=== PATIENT | female | born 1945 | race Caucasian/White ===

== ENCOUNTER 2017-02-14 14:37 | Outpatient (CLI) | payer MEDICARE ==
--- NOTE | 2017-02-14 19:44 | XRAY Report ---
COMPLETE CERVICAL SPINE: 02/14/2017 CLINICAL INDICATION: Neck pain. FINDINGS: AP, lateral, oblique, odontoid views of the cervical spine demonstrate reversal of the nor mal cervical lordosis. [id number] degenerative disc and facet disease is present, with bilat eral osseous neural foraminal encroachment from C3-4 to C5-6. There is no evidence of acute fracture . The prevertebral soft tissues are unremarkable. IMPRESSION: EXTENSIVE DEGENERATIVE CHANGES, WITH BILATERAL OSSEOUS NEURAL FORAMINAL NARROWING. JOB #: [id number] EXT JOB #:[id number]
== END 2017-02-14 14:38 | disposition home or self-care (01) ==
LOC: DI.S 14:37
PROVIDERS: ATTEND Internal Medicine
DX: M50.31 Other cervical disc degeneration, high cervical region (principal); M47.892 Other spondylosis, cervical region
CPT/HCPCS: 72050

== ENCOUNTER 2017-12-30 15:35 | Outpatient (CLI) | payer MEDICARE ==
--- NOTE | 2017-12-31 12:46 | XRAY Report ---
THREE VIEW RIGHT SHOULDER: 12/30/2017 CLINICAL INDICATION: Pain. FINDINGS: AP, oblique, scapular Y views of the right shoulder demonstrate no evidence of acute fracture or dislocation. Mild degenerative changes are seen in the acromioclavicular and glenohumeral joints. No foreign body is seen in the soft tissues. IMPRESSION: MILD OSTEOARTHRITIS. NO EVIDENCE OF FRACTURE. TD: 12/31/2017 11:53
== END 2017-12-30 15:36 | disposition home or self-care (01) ==
LOC: DI.S 15:35
PROVIDERS: ATTEND Internal Medicine
DX: M25.511 Pain in right shoulder (principal); M75.41 Impingement syndrome of right shoulder; M19.011 Primary osteoarthritis, right shoulder

== ENCOUNTER 2018-06-07 01:05 | Inpatient (IN) | payer MEDICARE ==
[2018-06-07 01:34] LABS: BASOPHILS # (AUTO) 0.1 10^3/uL (0.0-0.1); BASOPHILS % (AUTO) 0.4 %; EOSINOPHILS # (AUTO) 0.1 10^3/uL (0.0-0.7); EOSINOPHILS % (AUTO) 0.4 %; HGB - HEMOGLOBIN 13.6 g/dL (12.0-16.0); LYMPHOCYTES # (AUTO) 1.8 10^3/uL (1.5-3.5); LYMPHOCYTES % (AUTO) 13.8 %; MEAN CORPUSCULAR HEMOGLOBIN 32.4 pg (27.0-31.0); MEAN CORPUSCULAR HGB CONC 35.6 g/dL (32.0-36.0); MEAN CORPUSCULAR VOLUME 90.9 fL (81.0-99.0); MEAN PLATELET VOLUME 8.4 fL (7.9-10.8); MONOCYTES % (AUTO) 7.8 %; NEUTROPHILS # (AUTO) 10.2 10^3/uL (1.5-6.6); NEUTROPHILS % (AUTO) 77.6 %; PLT - PLATELET COUNT 265 10^3/uL (130-450); RED BLOOD COUNT 4.18 10^6/uL (4.20-5.40); WHITE BLOOD COUNT 13.1 x10^3/uL (4.8-10.8)
[2018-06-07 01:47] LABS: ALBUMIN 4.1 g/dL (3.2-5.5); ALBUMIN/GLOBULIN RATIO 1.5 (1.0-2.2); BILIRUBIN,TOTAL 0.4 mg/dL (0.2-1.0); CALCIUM 9.1 mg/dL (8.5-10.3); CREATININE 0.8 mg/dL (0.4-1.0); TOTAL PROTEIN 6.9 g/dL (6.7-8.2)
--- NOTE | 2018-06-07 01:49 | ED Physician Documentation ---
PD HPI CHEST PAIN - Stated complaint Stated Complaint: CP/ABD PAIN WITH DISTENTION - Chief complaint Chief Complaint: Cardiac - History obtained from History obtained from: Patient - History of Present Illness Timing - onset: Yesterday (approximately 24 hours ago) Timing - onset during: Light activity Timing - details: Gradual onset, Waxing and waning, Still present in ED Pain level max: 8 Pain level now: 6 Quality: Pain Location: Substernal, Epigastric Radiation: Back Improved by: Nothing Worsened by: Other (no apparent exacerbating factors) Associated symptoms: Nausea. No: Vomiting Similar symptoms before: Has not had sx before Recently seen: Not recently seen - Additional information Additional information: Patient complains of proximally 24 hours of waxing and waning pain in her lower chest and upper abdomen radiating to her back. She has nausea but no vomiting. Received fentanyl en route to hospital with significant relief of the pain. Review of Systems Constitutional: reports: Reviewed and negative Eyes: reports: Reviewed and negative Ears: reports: Reviewed and negative Nose: reports: Reviewed and negative Throat: reports: Reviewed and negative Cardiac: reports: Reviewed and negative Respiratory: reports: Reviewed and negative GI: reports: Abdominal Pain, Nausea. 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 - Present Medications Home Medications: Ambulatory Orders Medication Instructions Recorded Confirmed Estradiol [Estrace] 0.5 mg PO DAILY 12/03/12 06/07/18 Levothyroxine Sodium [Levoxyl] 75 mcg PO DAILY 12/03/12 06/07/18 Lisinopril 10 mg PO DAILY 06/07/18 06/07/18 Naltrexone HCl 3 mg PO QPM 06/07/18 06/07/18 buPROPion HCl [Bupropion HCl] 100 mg PO BID 06/07/18 06/07/18 - Allergies Allergies/Adverse Reactions: Allergies Allergy/AdvReac Type Severity Reaction Status Date / Time Latex, Natural Rubber Allergy Intermediate Hives Verified 06/07/18 01:17 PST - Social History Does the pt smoke?: No Smoking Status: Never smoker Does the pt drink ETOH?: No Does the pt have substance abuse?: No - Immunizations Immunizations are current?: Yes - POLST Patient has POLST: No PD ED PE NORMAL - Vitals Vital signs reviewed: Yes - General General: Alert and oriented X 3, No acute distress, Well developed/nourished - HEENT HEENT: Moist mucous membranes - Neck Neck: Supple, no meningeal sign - Cardiac Cardiac: RRR, No murmur - Respiratory Respiratory: No respiratory distress, Clear bilaterally - Abdomen Abdomen: Soft, Non distended, Other (moderate tenderness in epigastrium, RUQ without rebound or guarding) - Back Back: No CVA TTP - Derm Derm: Normal color, Warm and dry, No rash - Extremities Extremities: No edema - Neuro Neuro: Alert and oriented X 3 Results - Vitals Vitals: Oxygen O2 Source Room air - EKG (time done) No standard instances Rate: Rate (enter#) (55) Rhythm: NSR [place]: Normal Intervals: Normal [place] QRS: Normal Ischemia: Normal ST segments - Labs Labs: Laboratory Tests 06/07/18 06/07/18 06/07/18 01:25 PST 01:25 PST 01:25 PST WBC 13.1 H RBC 4.18 L Hgb 13.6 Hct 38.0 MCV 90.9 MCH 32.4 H MCHC 35.6 RDW 13.0 Plt Count 265 MPV 8.4 Neut # (Auto) 10.2 H Lymph # (Auto) 1.8 [place] # (Auto) 1.0 Eos # (Auto) 0.1 Baso # (Auto) 0.1 Absolute Nucleated RBC 0.01 Nucleated RBC % 0.1 Sodium 132 L Potassium 3.7 Chloride 94 L Carbon Dioxide 28 Anion Gap 10.0 BUN 17 Creatinine 0.8 Estimated GFR (MDRD) 70 L Glucose 126 H Calcium 9.1 Total Bilirubin 0.4 AST 35 ALT 38 Alkaline Phosphatase 75 Troponin I 0.05 Total Protein 6.9 Albumin 4.1 Globulin 2.8 Albumin/Globulin Ratio 1.5 Lipase 22 - Rads (name of study) RUQ US Radiology: Prelim report reviewed, See rad report PD MEDICAL DECISION MAKING - ED course Complexity details: reviewed results, re-evaluated patient, considered differential, d/w patient, d/w family ED course: reassuring blood test results, although mild leukocytosis noted. US c/w cholecystitis with dilated CBD to 15mm. d/w Dr. Gonzales, recommends admission to hospitalist service. d/w Dr. Bacon, accepts to hospitalist service. Departure - Departure Disposition: [facility] DC/Xfer Clinical Impression: Cholecystitis Condition: Good Discharge Date/Time: 06/07/18 06:14
[2018-06-07] MEDS: fentaNYL 100 MCG/2 ML VIAL IVP STA ×2 (02:28→14:38)
--- NOTE | 2018-06-07 03:02 | XRAY Report ---
Reason: chest/back pain Procedure Date: 06/07/2018 Accession Number: [id number] / [id number] Procedure: XR - Chest 2 View X-Ray CPT Code: 50978 FULL RESULT: EXAM: CHEST RADIOGRAPHY EXAM DATE: 06/07/2018 02:53 AM. CLINICAL HISTORY: Chest/back pain. COMPARISON: None. TECHNIQUE: 2 views. FINDINGS: Lungs/Pleura: No focal opacities evident. No pleural effusion. No pneumothorax. Normal volumes. Mediastinum: Heart and mediastinal contours are unremarkable. Other: None. IMPRESSION: Normal 2-view chest radiography. RADIA
--- NOTE | 2018-06-07 04:11 | Ultrasound Report ---
Reason: abd. pain Procedure Date: 06/07/2018 Accession Number: [id number] / [id number] Procedure: US - Abdomen Limited CPT Code: FULL RESULT: EXAM: ABDOMEN ULTRASOUND LIMITED, RUQ EXAM DATE: 06/07/2018 03:53 AM. CLINICAL HISTORY: Abd. pain. COMPARISON: None. TECHNIQUE: Real-time scanning was performed with static images obtained. FINDINGS: Liver: The liver demonstrates a 1.5 cm echogenic hemangioma in the right lobe. No suspicious hepatic lesion is seen. The liver measures 16.2 cm. Main portal vein flow: Hepatopetal. Gallbladder: Cholelithiasis. Gallbladder wall thickening and positive sonographic Barber sign, compatible with acute cholecystitis. Biliary System: CBD measures 15 mm. Other: No right hydronephrosis. IMPRESSION: Cholelithiasis, with wall thickening and positive sonographic Barber sign, compatible with acute cholecystitis. Dilated common bile duct. RADIA
[2018-06-07] MEDS ORDERED: ONDANSETRON 4 MG/2 ML VIAL IVP STA (05:00)
[2018-06-07] MEDS ORDERED: HYDROmorphone 1 MG/ML CARPUJECT IVP STA (05:00)
[2018-06-07] MEDS ORDERED: PROCHLORPERAZINE 10 MG/2 ML VIAL IVP PRN (05:01)
[2018-06-07] MEDS ORDERED: PROMETHAZINE 25 MG/1 ML VIAL IM PRN (05:01)
[2018-06-07] MEDS ORDERED: ONDANSETRON 4 MG/2 ML VIAL IVP PRN (05:01)
[2018-06-07] MEDS ORDERED: ACETAMINOPHEN 325 MG TABLET PO PRN (05:01)
[2018-06-07] MEDS ORDERED: oxyCODONE 5 MG TABLET PO PRN ×2 (05:01)
--- NOTE | 2018-06-07 05:08 | HISTORY & PHYSICAL EXAMINATION ---
Chief Complaint - Chief Complaint Chief Complaint: Abdominal pain History of Present Illness - Admitted From Admitted From:: Emergency Department - History Obtained From Records Reviewed: Yes History obtained from: Patient Exam Limitations: None - History of Present Illness HPI Comment/Other: Patient is a 73-year-old female with a past medical history significant for hypothyroidism, hypertension, depression, fibromyalgia and irritable bowel syndrome who presented to the emergency department with chief complaint of abdo anni pain. The patient states that she was in her normal state of health until Friday night when she ate a taco. She states that she went to bed that evening feeling okay but then woke up around 2 AM with abdominal pain. She states that the pain was initially located in the epigastric area and radiated into her back and then up into her chest and down into her lower abdomen. She states that she had associated nausea. She states that she tried taking an acids and homeopathic medications but nothing seemed to subside the pain. The patient states that the pain was persistent throughout the day and came in waves. She states that she also felt bloated and gassy. She states that she tried not to come into the hospital but then around midnight she states the pain became severe and was a 9 out of 10 and finally she stated that she could not bear it any longer. The patient states that she did try to keep hydrated throughout the day despite feeling nauseated. She did not have any episodes of vomiting. She did not have any diarrhea or constipation. The patient denies having had any fevers or chills. The patient denies any cough or shortness of breath. The patient states she is never had pain like this before. The patient states that she had no appetite. Patient denies any headaches, blurred vision, runny nose, sore throat, nasal congestion, difficulty swallowing, orthopnea, PND, increased lower extremity swelling, urinary urgency, urinary frequency, dysuria, joint pain, muscle aches, neck stiffness, polyuria, polydipsia, skin changes, skin rash, recent unintentional weight loss or any focal neurologic deficits. On presentation to the emergency department the patient was afebrile, bradycardic with a heart rate of 55 and hypertensive. The patient was not in any respiratory distress but did appear to be in significant distress secondary to her abdominal pain. The patient was given fentanyl when she arrived in the emergency department and required several doses of fentanyl while she was in the emergency department due to persistent abdominal pain. The patient did have some right upper quadrant tenderness on examination. The patient's lab work revealed a mild leukocytosis of 13.1 and a mild hyponatremia of 132. The remainder of the patient's lab work was within normal limits. The patient did undergo a abdominal ultrasound which revealed cholelithiasis with wall thickening and positive sonographic Barber sign compatible with acute cholecystitis. There was also a dilated common bile duct measuring 15 mm. The emergency room physician spoke with the general surgeon farm demonstrator Dr. Gonzales who asked that the hospitalist team admit the patient and place her on antibiotics and that he would consult and take her to the OR for cholecystectomy later in the day. The patient was admitted to the [facility] for acute cholecystitis. 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 She is completely independent. She is . She has 1 daughter who lives in [place]. 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 She has never smoked, she does not drink alcohol and denies any illicit drug use. - POLST Patient has POLST: No POLST Status: Full Code Meds/Allgy - Home Medications Home Medications: Ambulatory Orders Medication Instructions Recorded Confirmed Estradiol [Estrace] 2 mg PO DAILY 12/03/12 06/07/18 Levothyroxine Sodium [Levoxyl] 75 mcg PO DAILY 12/03/12 06/07/18 Medroxyprogesterone Acetate 2.5 mg PO DAILY 12/03/12 06/07/18 Lisinopril 1 tab PO DAILY 06/07/18 06/07/18 buPROPion HCl [Bupropion HCl] 1 tab PO TID 06/07/18 06/07/18 - Allergies Allergies/Adverse Reactions: Allergies Allergy/AdvReac Type Severity Reaction Status Date / Time Latex, Natural Rubber Allergy Intermediate Hives Verified 06/07/18 01:17 PST Review of Systems - Other Findings Other Findings: A comprehensive review of systems was performed the pertinent positives and negatives are stated above in the HPI and the remainder of the review of systems is negative. Prior Level of Functionality: Patient is completely independent with all her activities of daily living. Exam - Vital Signs Reviewed Vital Signs: Yes Vital Signs: Vital Signs x48h Temp Pulse Resp BP Pulse Ox 06/07/18 02:56 53 L 16 182/65 H 97 06/07/18 02:10 36.2 C L 59 L 16 188/72 H 98 06/07/18 01:12 PST 55 L 12 168/84 H 98 - Physical Exam General Appearance: positive: Alert, Moderate distress (Secondary to abdominal p ain) Eyes Bilateral: positive: Normal inspection, PERRL, EOMI, No lid inflammation, Conjunctivae nml, No scleral icterus ENT: positive: ENT inspection nml, Pharynx nml, Dry mucous membranes. negative: Purulent nasal drainage, Pharyngeal erythema, Oral lesions Neck: positive: Nml inspection, Thyroid nml, No JVD, Trachea midline. negative: Thyromegaly, Lymphadenopathy (R), Lymphadenopathy (L), Carotid bruit, Tracheal deviation Respiratory: positive: Chest non-tender, No respiratory distress, Breath sounds nml. negative: Wheezes, Rales, Rhonchi Cardiovascular: positive: Regular rate & rhythm, No murmur, No gallop Peripheral Pulses: positive: 2+ Abdomen: positive: No organomegaly, Nml bowel sounds, No distention, Tenderness (Soft, RUQ tenderness, no abdominal guarding, no rebound). negative: Guarding, Rebound, Hepatomegaly Back: positive: Nml inspection. negative: CVA tenderness (R), CVA tenderness (L) Skin: positive: Color nml, No rash, Warm, Dry. negative: Cyanosis, Diaphoresis, Pallor, Skin rash Extremities: positive: Non-tender, Full ROM, Nml appearance, No pedal edema Neurologic/Psychiatric: positive: Oriented x3, CN's nml (2-12), Motor nml, Sensation nml, Mood/affect nml Conclusion/Plan - Problem List (1) Cholecystitis Conclusion/Plan: Patient presents with abdominal pain for the last 24 hours with radiation to her back and up into her chest. Patient also has associated nausea. Patient's ultrasound shows acute cholecystitis with a positive sonographic Barber sign and common bile duct dilation. Patient's LFTs are within normal limits. Patient does have a leukocytosis but no fever. According to the revised cardiac risk index for preoperative risk the patient scores 0 and has a 0.4% risk of major cardiac event. Plan: IV antibiotics with ciprofloxacin and Flagyl IV fluids IV Dilaudid for pain control IV Zofran and Compazine for nausea control N.p.o. Surgery consult for likely cholecystectomy (2) Hyponatremia Conclusion/Plan: On presentation to the emergency department the patient's sodium is 132. Patient appears to have hypovolemic hyponatremia likely due to ongoing infection and nausea. The patient will be given IV fluids and we will continue to monitor her sodium. (3) Hypertension Conclusion/Plan: Patient has a history of hypertension and is on lisinopril at home. On presentation the emergency department the patient is quite hypertensive. Likely patient is hypertensive secondary to her pain. We will continue the patient's home antihypertensive medication and give her medication for pain control. We will continue to monitor the patient's blood pressure and titrate medication as needed. Qualifiers: Hypertension type: essential hypertension Qualified Code(s): I10 - Essential (primary) hypertension (4) Hypothyroidism Conclusion/Plan: The patient has a history of hypothyroidism and is on levothyroxine at home. We will continue the patient's home dose of levothyroxine while she is hospitalized. Qualifiers: Hypothyroidism type: unspecified Qualified Code(s): E03.9 - Hypothyroidism, unspecified (5) Depression Conclusion/Plan: The patient has a history of depression and is on bupropion at home. We will continue the patient's home dose of bupropion while she is hospitalized. Currently the patient's mood appears to be stable. Qualifiers: Depression Type: unspecified Qualified Code(s): F32.9 - Major depressive disorder, single episode, unspecified - Lab Results Lab results reviewed: Yes Fish Bones: 06/07/18 01:25 PST 06/07/18 01:25 PST Other Lab Results: Laboratory Results WBC 13.1 x10^3/uL (4.8-10.8) H 06/07/18 01:25 PST RBC 4.18 10^6/uL (4.20-5.40) L 06/07/18 01:25 PST Hgb 13.6 g/dL (12.0-16.0) 06/07/18 01:25 PST Hct 38.0 % (37.0-47.0) 06/07/18 01:25 PST MCV 90.9 fL (81.0-99.0) 06/07/18 01:25 PST MCH 32.4 pg (27.0-31.0) H 06/07/18 01:25 PST MCHC 35.6 g/dL (32.0-36.0) 06/07/18 01:25 PST RDW 13.0 % (12.0-15.0) 06/07/18 01:25 PST Plt Count 265 10^3/uL (130-450) 06/07/18 01:25 PST MPV 8.4 fL (7.9-10.8) 06/07/18 01:25 PST Neut # (Auto) 10.2 10^3/uL (1.5-6.6) H 06/07/18 01:25 PST Lymph # (Auto) 1.8 10^3/uL (1.5-3.5) 06/07/18 01:25 PST Terry # (Auto) 1.0 10^3/uL (0.0-1.0) 06/07/18 01:25 PST Eos # (Auto) 0.1 10^3/uL (0.0-0.7) 06/07/18 01:25 PST Baso # (Auto) 0.1 10^3/uL (0.0-0.1) 06/07/18 01:25 PST Absolute Nucleated RBC 0.01 x10^3/uL 06/07/18 01:25 PST Nucleated RBC % 0.1 /100WBC 06/07/18 01:25 PST Sodium 132 mmol/L (135-145) L 06/07/18 01:25 PST Potassium 3.7 mmol/L (3.5-5.0) 06/07/18 01:25 PST Chloride 94 mmol/L (101-111) L 06/07/18 01:25 PST Carbon Dioxide 28 mmol/L (21-32) 06/07/18 01:25 PST Anion Gap 10.0 (6-13) 06/07/18 01:25 PST BUN 17 mg/dL (6-20) 06/07/18 01:25 PST Creatinine 0.8 mg/dL (0.4-1.0) 06/07/18 01:25 PST Estimated GFR (MDRD) 70 (>89) L 06/07/18 01:25 PST Glucose 126 mg/dL (70-100) H 06/07/18 01:25 PST Calcium 9.1 mg/dL (8.5-10.3) 06/07/18 01:25 PST Total Bilirubin 0.4 mg/dL (0.2-1.0) 06/07/18 01:25 PST AST 35 IU/L (10-42) 06/07/18 01:25 PST ALT 38 IU/L (10-60) 06/07/18 01:25 PST Alkaline Phosphatase 75 IU/L (42-121) 06/07/18 01:25 PST Troponin I 0.05 ng/mL (<0.49) 06/07/18 01:25 PST Total Protein 6.9 g/dL (6.7-8.2) 06/07/18 01:25 PST Albumin 4.1 g/dL (3.2-5.5) 06/07/18 01:25 PST Globulin 2.8 g/dL (2.1-4.2) 06/07/18 01:25 PST Albumin/Globulin Ratio 1.5 (1.0-2.2) 06/07/18 01:25 PST Lipase 22 U/L (22-51) 06/07/18 01:25 PST - Diagnostic Imaging Results Diagnostic Imaging Results: positive: Final report reviewed Diagnostic Imaging Results Comments: Chest x-ray Impression: Normal 2 view chest radiography Abdominal ultrasound Impression: Cholelithiasis, with wall thickening and positive sonographic Barber sign. Compatible with acute cholecystitis. Dilated common bile duct. Common bile duct measures 15 mm. - EKG Results EKG Interpreted Independently: Yes EKG Findings: No ST elevations or ischemic changes noted on her EKG. Core Measures - Anticipated LOS I expect patient to be DC'd or transferred within 96 hours.: Yes - DVT/VTE - Prophylaxis VTE/DVT Prophylaxis med ordered at admit?: Yes
[2018-06-07] MEDS ORDERED: CIPROFLOXACIN 400 MG/200 ML 200 ML IV SCH (06:00)
[2018-06-07] MEDS ORDERED: SODIUM CHLORIDE 0.9% 1,000 ML IV SCH (06:00)
[2018-06-07] MEDS ORDERED: NS W/20 MEQ KCL 1,000 ML IV SCH (06:00)
[2018-06-07] MEDS: SODIUM CHLORIDE FLUSH 0.9% 10 ML SYRINGE IVP PRN ×3 (06:31→16:57)
[2018-06-07] MEDS: metroNIDAZOLE 500 MG/100 ML 500 MG/100 ML BAG IV SCH ×2 (06:31→16:04)
[2018-06-07 06:42] LABS: BILIRUBIN,URINE NEGATIVE (NEGATIVE); GLUCOSE, URINE (UA) NEGATIVE (NEGATIVE); KETONES,URINE (UA) NEGATIVE (NEGATIVE); LEUKOCYTE ESTERASE, URINE NEGATIVE (NEGATIVE); NITRITE,URINE NEGATIVE (NEGATIVE); OCCULT BLOOD,URINE TRACE-INTA (NEGATIVE); PH,URINE 8.5 PH (5.0-7.5); PROTEIN,URINE NEGATIVE (NEGATIVE); UROBILINOGEN,URINE 0.2 (NORMAL) E.U./dL (NORMAL)
[2018-06-07 06:44] LABS: CLARITY,URINE CLEAR (CLEAR)
[2018-06-07] MEDS: SODIUM CHLORIDE FLUSH 0.9% 10 ML SYRINGE IVP SCH ×3 (08:21→15:46)
[2018-06-07] MEDS: HYDROmorphone 1 MG/ML CARPUJECT IVP PRN ×3 (08:22→16:57)
[2018-06-07] MEDS ORDERED: LEVOTHYROXINE 75 MCG TABLET PO SCH ×2 (09:00)
[2018-06-07] MEDS ORDERED: FAMOTIDINE 20 MG/50 ML 50 ML IV SCH (09:00)
[2018-06-07] MEDS ORDERED: BUPROPION HCL 100 MG PO SCH ×2 (09:00)
[2018-06-07] MEDS ORDERED: LISINOPRIL 5 MG TABLET PO SCH (09:00)
[2018-06-07] MEDS ORDERED: POLYETHYLENE GLYCOL 3350 17 GM PACKET PO SCH (09:00)
--- NOTE | 2018-06-07 09:40 | CONSULTATION NOTE ---
Referring Provider Name of Referring Provider:: Dr. Orlando Bacon Consult Date: 06/07/18 Chief Complaint - Chief Complaint Chief Complaint: Severe RUQ pain History of Present Illness - Admitted From Admitted From:: [facility] ED - History Obtained From Records Reviewed: Yes History obtained from: Patient and chart. Exam Limitations: None. - History of Present Illness HPI Comment/Other: The patient is a very pleasant 73 year old female evaluated in Room 2204 of [facility] med-surg unit after being admitted by Dr. Bacon for antibiotics (of which I am extremely grateful). Dr. Bacon's H&P is EXTREMELY comprehensive and I can certainly repeat it here but everything that was written was confirmed by the patient. Long story short, worsening, unremitting colicky RUQ pain following eating a taco. 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 She is completely independent. She is . She has 1 daughter who lives in [place]. 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 She has never smoked, she does not drink alcohol and denies any illicit drug use. - POLST Patient has POLST: No POLST Status: Full Code Meds/Allgy - Home Medications Home Medications: Ambulatory Orders Medication Instructions Recorded Confirmed Estradiol [Estrace] 0.5 mg PO DAILY 12/03/12 06/07/18 Levothyroxine Sodium [Levoxyl] 75 mcg PO DAILY 12/03/12 06/07/18 Lisinopril 10 mg PO DAILY 06/07/18 06/07/18 Naltrexone HCl 3 mg PO QPM 06/07/18 06/07/18 buPROPion HCl [Bupropion HCl] 100 mg PO BID 06/07/18 06/07/18 - Allergies Allergies/Adverse Reactions: Allergies Allergy/AdvReac Type Severity Reaction Status Date / Time Latex, Natural Rubber Allergy Intermediate Hives Verified 06/07/18 01:17 PST Review of Systems - Constitutional Constitutional: denies: Fatigue, Fever - Eyes Eyes: denies: Pain - Ears, Nose & Throat Ears, Nose & Throat: denies: Ear pain - Cardiovascular Cariovascular: denies: Irregular heart rate, Palpitations, Chest pain - Respiratory Respiratory: denies: Cough - Gastrointestinal Gastrointestinal: reports: Abdominal pain, Abdominal distention, Nausea. denies: Constipation, Diarrhea, Rectal bleeding, Black stools, Bloody stools, Vomiting - Genitourinary Genitourinary: denies: Dysuria - Musculoskeletal Musculoskeletal: reports: Back pain (Trasmitted front to back.). denies: Muscle pain - Integumentary Integumentary: denies: Rash - Neurological Neurological: denies: General weakness, Focal weakness - Hematologic/Lymphatic Hematologic/Lymphatic: denies: Anemia Exam - Vital Signs Reviewed Vital Signs: Yes Vital Signs: Vital Signs x48h Temp Pulse Pulse Resp BP BP Pulse Ox 06/07/18 07:33 36.7 C 54 L 18 158/62 H 96 06/07/18 06:24 36.7 C 58 L 16 164/65 H 97 06/07/18 05:22 57 L 16 165/61 H 96 06/07/18 02:56 53 L 16 182/65 H 97 06/07/18 02:10 36.2 C L 59 L 16 188/72 H 98 - Physical Exam General Appearance: positive: No acute distress Eyes Bilateral: positive: No lid inflammation, Conjunctivae nml, No scleral icterus ENT: positive: Dry mucous membranes Neck: positive: Trachea midline. negative: Carotid bruit Respiratory: positive: Chest non-tender, No respiratory distress, Breath sounds nml Cardiovascular: positive: Regular rate & rhythm Abdomen: positive: Non-tender, No organomegaly, Nml bowel sounds, No distention, Other (Very small umbilical hernia) Skin: positive: Color nml, Warm Extremities: positive: Nml appearance Neurologic/Psychiatric: positive: Oriented x3 Conclusion/Plan - Diagnosis Diagnosis: Acute cholecystitis. Umbilical hernia - Plan Plan: Laparoscopic cholecystectomy, possible open cholecystectomy, probable intraoperative cholangiogran, possible common bile duct exploration, umbilical herniorrhaphy. The indications, procedure, alternatives including no surgery, ingestion of Actigall, possible risks including infection (deep or superficial), bleeding requiring transfusion (with all of its risks), common bile duct injury requring repair and additional surgery, and were fully explained to the patient and all questions answered. I also explained the pathophysiology. I ex plained that following the surgery I did not want her lifting anything over 15 pounds for 6 weeks to allow for optimal healing and to decrease the likelihood that a hernia would occur. All questions were fully answered. Verbal and written consent was obtained. The patient, in preparation for surgery will be nothing by mouth, and receive 2 gm of Cephalexin with induction. I asked her to contact me with any surgical questions and her concerns and she stated that she would. I asked her to let me know if there is any way we can make her stay at [facility] more comfortable and she stated that she would let me know. I explained to the patient that she may require a CT scan of the abdomen and pelvis and/or an MRCP to workup her dilated common bile duct. She has me whether cancer is a possibility and I of course answered yes although it is unlikely. The plan is to do this operation and to discharge her home following the procedure. 45 minutes of [id number] time spent with the patient, over 80% in discussion, coordination of her care, and completion of the requisite paperwork [place] disclaimer: This document was created in part using voice recognition technology. Because of the inherent limitations of the system ([employer] user manual states that the licensee understands that speech recognition is a statistical process and that recognition errors are inherent in the process), occasional same sounding word substitutions and grammatical errors do occur and persist despite proofreading. Please read this document for context. - Lab Results Lab results reviewed: Yes Fish Bones: 06/07/18 01:25 PST 06/07/18 01:25 PST - Diagnostic Imaging Results Diagnostic Imaging Results: positive: Final report reviewed Diagnostic Imaging Results Comments: The large common bile duct to 15 mm is concerning and the likelihood that I would perform a intraoperative cholangiogram is higher than normal. In fact it is my plan.
--- NOTE | 2018-06-07 11:29 | ANESTHESIA ---
Pre-Anesthesia VS, & Labs - Diagnosis cholelithiasis - Procedure laparoscopic cholecystectomy Vital Signs: Temp Pulse Resp BP Pulse Ox 36.7 C 54 L 18 158/62 H 96 06/07/18 07:33 06/07/18 07:33 06/07/18 07:33 06/07/18 07:33 06/07/18 07:33 Height 5 ft 7 in Weight (kg) 70 kg Body Mass Index 24.1 - NPO >8 hours - Is Patient ?: No - Lab Results Current Lab Results: Laboratory Tests 06/07/18 01:25 PST: Troponin I 0.05 06/07/18 01:25 PST: Sodium 132 L, Potassium 3.7, Chloride 94 L, Carbon Dioxide 28, Anion Gap 10.0, BUN 17, Creatinine 0.8, Estimated GFR (MDRD) 70 L, Glucose 126 H, Calcium 9.1, Total Bilirubin 0.4, AST 35, ALT 38, Alkaline Phosphatase 75, Total Protein 6.9, Albumin 4.1, Globulin 2.8, Albumin/Globulin Ratio 1.5, Lipase 22 06/07/18 01:25 PST: WBC 13.1 H, RBC 4.18 L, Hgb 13.6, Hct 38.0, MCV 90.9, MCH 32.4 H, MCHC 35.6, RDW 13.0, Plt Count 265, MPV 8.4, Neut # (Auto) 10.2 H, Lymph # (Auto) 1.8, Navarro # (Auto) 1.0, Eos # (Auto) 0.1, Baso # (Auto) 0.1, Absolute Nucleated RBC 0.01, Nucleated RBC % 0.1 Fish Bones: 06/07/18 01:25 PST 06/07/18 01:25 PST Home Medications and Allergies Home Medications: Ambulatory Orders Lisinopril 10 mg PO DAILY 06/07/18 Naltrexone HCl 3 mg PO QPM 06/07/18 buPROPion HCl [Bupropion HCl] 100 mg PO BID 06/07/18 Active Medications Acetaminophen (Tylenol) 650 mg PO Q4HR PRN PRN Reason: Pain 1 to 4 Enoxaparin Sodium (Lovenox) 40 mg SUBQ DAILY MARZENA Hydromorphone HCl (Dilaudid Inj Carp) 1 mg IVP Q2HR PRN PRN Reason: Pain 8 to 10 Last Admin: 06/07/18 08:22 Dose: 1 mg Ciprofloxacin (Cipro 400 Mg/200 Ml) 200 mls @ 200 mls/hr IV Q12H [facility] Last Infusion: 06/07/18 07:45 Dose: Infused Famotidine (Pepcid 20 Mg/50 Ml) 50 mls @ 100 mls/hr IV BID [facility] Last Infusion: 06/07/18 08:50 Dose: Infused Metronidazole (Flagyl 500 Mg/100 Ml) 500 mg in 100 mls @ 100 mls/hr IV Q8H [facility] Last Infusion: 06/07/18 08:39 Dose: Infused Sodium Chloride (Normal Saline 0.9%) 1,000 mls @ 125 mls/hr IV .Q8H [facility] Last Admin: 06/07/18 06:31 Dose: 125 mls/hr Levothyroxine Sodium (Synthroid) 75 mcg PO QDAC [facility] Last Admin: 06/07/18 09:10 Dose: 75 mcg Lisinopril (Zestril) 10 mg PO DAILY [facility] Last Admin: 06/07/18 09:08 Dose: 10 mg Ondansetron HCl (Zofran Inj) 4 mg IVP Q6HR PRN PRN Reason: Nausea / Vomiting Oxycodone HCl (Roxicodone) 5 mg PO Q4HR PRN PRN Reason: Pain 5 to 7 Last Admin: 06/07/18 07:02 Dose: 5 mg Oxycodone HCl (Roxicodone) 10 mg PO Q4HR PRN PRN Reason: Pain 8 to 10 Bupropion Hcl 100 Mg 1 each PO BID [facility] Last Admin: 06/07/18 09:11 Dose: 1 each Polyethylene Glycol (Miralax) 17 gm PO DAILY [facility] Last Admin: 06/07/18 08:38 Dose: Not Given Prochlorperazine Edisylate (Compazine Inj) 10 mg IVP Q6HR PRN PRN Reason: Nausea / Vomiting Promethazine HCl (Phenergan Inj) 25 mg IM Q6HR PRN PRN Reason: Nausea / Vomiting Sodium Chloride (Normal Saline Flush 0.9%) 10 ml IVP PRN PRN PRN Reason: NEEDED PER PROVIDER ORDERS Last Admin: 06/07/18 08:22 Dose: 10 ml Sodium Chloride (Normal Saline Flush 0.9%) 10 ml IVP 0100,0900,1700 MARZENA Last Admin: 06/07/18 08:21 Dose: 10 ml Estradiol [Estrace] 0.5 mg PO DAILY 12/03/12 Levothyroxine Sodium [Levoxyl] 75 mcg PO DAILY 12/03/12 Lisinopril 10 mg PO DAILY 06/07/18 Naltrexone HCl 3 mg PO QPM 06/07/18 buPROPion HCl [Bupropion HCl] 100 mg PO BID 06/07/18 Allergies/Adverse Reactions: Allergies Allergy/AdvReac Type Severity Reaction Status Date / Time Latex, Natural Rubber Allergy Intermediate Hives Verified 06/07/18 01:17 PST Anes History & Medical History - Anesthetic History Anesthesia Complications: reports: Post-Operative Nausea/Vomiting - Medical History Cardiovascular: reports: Hypertension Pulmonary: reports: None Gastrointestinal: reports: Other (Irritable bowel syndrome) Urinary: reports: None Neuro: reports: None Musculoskeletal: reports: Fibromyalgia Endocrine/Autoimmune: reports: HyPOthyroidism Skin: reports: Rosacea, Other ([place] cell carcinoma) Smoking Status: Never smoker - Surgical History General: Colonoscopy Gynecologic: Dilation and currettage, Other (hysterectomy) Exam General: Alert Dental: WNL Mouth Opening: Greater than 4 Fingerbreadths Mallampati classification: II Respiratory: Lungs clear Cardiovascular: Regular rate, Normal S1, Normal S2 Plan Anesthesia Type: General Consent for Procedure(s) Verified and Reviewed: Yes Code Status: Attempt Resuscitation ASA classification: 2-Mild systemic disease Is this case an emergency?: Yes
[2018-06-07] MEDS ORDERED: IOTHALAMATE MEGLUMINE 50 ML VIAL ONE (12:40)
[2018-06-07] MEDS ORDERED: fentaNYL 100 MCG/2 ML VIAL IVP ONE (13:00)
[2018-06-07] MEDS ORDERED: NEOSTIGMINE 1 MG/1 ML 10 ML MDV IVP ONE (13:00)
[2018-06-07] MEDS ORDERED: MIDAZOLAM 2 MG/2 ML VIAL IVP ONE (13:00)
[2018-06-07] MEDS ORDERED: GLYCOPYRROLATE 1 MG/5 ML VIAL IVP ONE (13:00)
[2018-06-07] MEDS ORDERED: PROPOFOL 200 MG/20 ML VIAL IVP ONE (13:00)
[2018-06-07] MEDS ORDERED: ACETAMINOPHEN 1,000 MG/100 ML 100 ML IV ONE (13:00)
[2018-06-07] MEDS ORDERED: ROCURONIUM 50 MG/5 ML VIAL IVP ONE (13:00)
[2018-06-07] MEDS ORDERED: DEXAMETHASONE 4 MG/ML VIAL IVP ONE (13:00)
[2018-06-07] MEDS ORDERED: ONDANSETRON 4 MG/2 ML VIAL IVP ONE (13:00)
[2018-06-07] MEDS ORDERED: BUPIVACAINE 0.5% PF 30 ML VIAL SUBQ ONE (13:02)
[2018-06-07] MEDS ORDERED: IOTHALAMATE MEGLUMINE 50 ML VIAL IVP ONE ×2 (13:03)
[2018-06-07] MEDS ORDERED: LACTATED RINGERS 1,000 ML IV ONE ×3 (13:03→14:40)
[2018-06-07] MEDS ORDERED: SODIUM CHLORIDE FLUSH 0.9% 10 ML SYRINGE IVP PRN (14:01)
[2018-06-07] MEDS ORDERED: HYDROcod/ACETAM 5/325 MG TABLET PO PRN (14:01)
--- NOTE | 2018-06-07 14:07 | OPERATIVE REPORT ---
Operative Report - General Admit Date: 06/07/18 Procedure Date: 06/07/18 Planned Procedure: Laparoscopic cholecystectomy, possible open cholecystectomy, probable intra Pre-Op Diagnosis: Acute cholecystitis and umbilical hernia Procedure Performed: Laparoscopic cholecystectomy with intraoperative cholangiogram and umbilical herniorrhaphy Post Op Diagnosis: Acute cholecystitis with hydrops and umbilical hernia - Procedure Note Primary Surgeon: Luke Gonzales MD Anesthesia Provider: Dannielle Petersen CRNA Anesthesia Technique: General ET tube, Local (30 mL of half percent Marcaine) IV Fluids (mL): 800 Estimated Blood Loss (mL): 5 Complications: None. - Other Other Information/Narrative: OPERATIVE DESCRIPTION/REPORT: After verbal and written informed consent was obtained detailing the risks of infection, bleeding with all of its risks including transfusion, common bile duct injury, and the patient was brought to the operative suite and placed in the supine position on the operating room table. Monitoring devices were applied along with TEDs and pneumatic compressive stockings. Care was taken to avoid pressure points. Prophylactic antibiotics were given. An adequate level of general endotracheal anesthesia was established by Dannielle Petersen CRNA. The abdomen was then prepped with ChloraPrep and draped in a sterile fashion. A "time in" then confirmed that the patient was identified with 3 identifiers (name, date and medical record number), the history and physical was in the chart, the signed consent confirming the procedure was in the chart, the patient was in the correct position, the aforementioned prophylactic measures were in place or given, we had the correct personnel and equipment to complete the procedure and that anesthesia, surgery and nursing were given an opportunity to express any concerns. The initial incision was at the umbilicus and dissection to a small umbilical hernia was completed using blunt dissection. The fascia on either side was grasped with a Samir the peritoneum was grasped and incised using Metzenbaum scissors. In this location, a 12 mm blunt tipped, balloon tipped port was placed and the balloon was inflated to keep the port in position. The abdominal cavity was insufflated with carbon dioxide to steady-state pressure of 15 mmHg. Three additional 5 mm ports were placed in standard location for laparoscopic cholecystectomy (subxiphoid and 2 right subcostal) under direct vision of the 30 degree laparoscope and without incident. The patient was then placed in reverse Trendelenburg position and was rotated slightly to their left. The gallbladder was markedly enlarged and distended and could not be grasped. As such the gallbladder had to be drained and this was performed using a laparoscopic needle and a 60 mL syringe. The return from the gallbladder was clear bile with sediment (hydrops). Once enough of this could be removed the gallbladder could be grasped. The gallbladder fundus was grasped with an atraumatic grasper. Multiple adhesions had to be taken down by blunt and sharp dissection along with electrocautery. Eventually, we identified the infundibulum, and this was then grasped and retracted inferior and laterally. Dissection was then begun in the angle of Calot. The cystic duct and (slightly medially and posteriorly) cystic artery were clearly identified. The critical view was obtained. A Azul catheter was placed across the gallbladder and the needle inserted into the gallbladder under direct vision. Half-strength dye was then used to shoot a fluoroscopic cholangiogram. Not surprisingly, the gallbladder distended but I cannot get any dye to go into the cystic duct which was expected due to the findings of hydrops (complete obstruction of the cystic duct). Numerous attempts with increasing pressure did not reveal a good anatomic picture of her cystic duct or common bile duct. At this point additional endeavors to obtain an intraoperative cholangiogram will likely to fail and the Azul catheter and clamp were removed. Two clips proximally and one clip distally were used to control both the cystic duct and cystic artery. The clips were carefully placed to avoid occluding the juncture with the common bile duct. Both the cystic duct and then the cystic artery were then transected with laparoscopic siva. The gallbladder was then removed from its fossa in a retrograde fashion using electrocautery. With the 30 degree 5 mm scope in the subxiphoid position, the gallbladder was placed in an EndoCatch bag to be extracted through the 12 mm port site. I irrigated the right upper quadrant with a liter of warm sterile saline, and the area was aspirated dry. I inspected the gallbladder fossa and there was no bleeding or bile leak. Clips on the cystic duct and cystic artery appeared to be secure. I briefly visually explored the abdomen. There was no other evidence of overt pathology. I injected the port sites at the peritoneal, fascial, and skin levels under direct vision with 0.5% Marcaine. All ports and the EndoCatch containing the gallbladder were removed. Following gallbladder removal, the remaining carbon dioxide was expelled from the abdomen. The fascia at the umbilicus was reapproximated using 2 [id number] 0 Vicryl sutures thus repairing the umbilical hernia. The skin at each port site was approximated using a subcuticular 4-0 Monocryl. The surgical count of instruments, needles and sponges was reported as correct twice. Mastisol, Steri-Strips and sterile surgical dressings were applied. The patient was then awakened from anesthesia, extubated, and having tolerated the procedure well, was transported to the recovery room. No complications were encountered. A "time out" confirmed the operation performed, the fluids given, the estimated blood loss and anesthesia, surgery and nursing were given an opportunity to express any concerns. [employer] disclaimer: This document was created in part using voice recognition technology. Because of the inherent limitations of the system ([employer]'s [employer] Dictate user manual states that the licensee understands that speech recognition is a statistical process and that recognition errors are inherent in the process), occasional same sounding word substitutions and grammatical errors do occur and persist despite proofreading. Please read this document for context.
[2018-06-07] MEDS ORDERED: fentaNYL 100 MCG/2 ML VIAL ONE (14:33)
[2018-06-07] MEDS ORDERED: LACTATED RINGERS 1,000 ML IV SCH (15:00)
[2018-06-07] MEDS ORDERED: ENOXAPARIN 40 MG/0.4 ML SYRINGE SUBQ SCH (15:00)
[2018-06-07] MEDS ORDERED: SODIUM CHLORIDE FLUSH 0.9% 10 ML SYRINGE IVP SCH (17:00)
[2018-06-07 17:35] VITALS: BP 141/62
--- NOTE | 2018-06-07 17:40 | XRAY Report ---
Reason: CHOLANGIOGRAM Procedure Date: 06/07/2018 Accession Number: [id number] / [id number] Procedure: [place] - OR Cholangiogram CPT Code: FULL RESULT: EXAM: INTRAOPERATIVE CHOLANGIOGRAM EXAM DATE: 06/07/2018 01:30 PM. CLINICAL HISTORY: CHOLANGIOGRAM. COMPARISONS: Abdominal ultrasound from 06/07/2018. TECHNIQUE: Dr. Gonzales performed the procedure. Please see the operative notes for details. Fluoroscopy Time: 14 seconds. Number of Images: 1. FINDINGS: The catheter appears to have been placed into the gallbladder neck intraoperatively. There is opacification of the gallbladder with multiple filling defects, compatible with cholelithiasis seen on ultrasound. There are no images demonstrating contrast in the cystic duct or common bile duct. Therefore, biliary patency cannot be evaluated by this examination. IMPRESSION: 1. Cholelithiasis. 2. Provided image does not demonstrate cystic or biliary ductal opacification. Therefore, duct patency cannot be confirmed by this examination. Please see operative report for further details and real-time findings. RADIA
--- NOTE | 2018-06-07 17:41 | DISCHARGE SUMMARY ---
"Discharge Summary Admit Date: 06/07/18 Discharge Date: 06/07/18 Discharging Provider: Luke Gonzales MD Code Status: Attempt Resuscitation Condition at Discharge: Good Discharge Disposition: 01 Home, Self Care - DIAGNOSES Admission Diagnoses: Acute cholecystitis Discharge Diagnoses with Status of Each Condition: Acute cholecystits gallbladder removed. - HPI History of Present Illness: See VERY complete H&P by Dr. Bacon and my synopsis. Basically worsening postprandial pain associated with cholelithiasis. - CONSULTS | PROCEDURES Consultations: Dr. Gonzales (dc) Procedures: Laparoscopic cholecystectomy with IOC and umbilical herniorrhaphy - HOSPITAL COURSE Hospital Course: Uncomplicated some postoperative urinary retention - resolved. - ALLERGIES Allergies/Adverse Reactions: Allergies Allergy/AdvReac Type Severity Reaction Status Date / Time Latex, Natural Rubber Allergy Intermediate Hives Verified 06/07/18 01:17 PST - MEDICATIONS Home Medications: Ambulatory Orders Medication Instructions Recorded Confirmed Estradiol [Estrace] 0.5 mg PO DAILY 12/03/12 06/07/18 Levothyroxine Sodium [Levoxyl] 75 mcg PO DAILY 12/03/12 06/07/18 Lisinopril 10 mg PO DAILY 06/07/18 06/07/18 Naltrexone HCl 3 mg PO QPM 06/07/18 06/07/18 buPROPion HCl [Bupropion HCl] 100 mg PO BID 06/07/18 06/07/18 Home Medications Other | Comments: Prescription written for [place] #20 and Colace #10. - PHYSICAL EXAM AT DISCHARGE General Appearance: positive: No acute distress Eyes Bilateral: positive: No lid inflammation, Conjunctivae nml, No scleral icterus ENT: positive: No signs of dehydration Neck: positive: Trachea midline Respiratory: positive: Chest non-tender Cardiovascular: positive: Regular rate & rhythm Abdomen: positive: Tenderness (Incisional and postoperative.) Skin: positive: Color nml Extremities: positive: Nml appearance Neurologic/Psychiatric: positive: Oriented x3 - LABS Result Diagrams: 06/07/18 01:25 PST 06/07/18 01:25 PST - DIAGNOSTIC IMAGING Diagnostic Imaging Results Comments: IOC read be me contemporaneously - cystic duct not visualized. Common duct not visualized. Patient had hydrops - complete obstruction of cystic duct. - FOLLOW UP Follow Up: Christian in 7-10 days for postoperative visit. MRCP should be ordered as outpatient. - TIME SPENT Time Spent in Discharge (Minutes): 30"
--- NOTE | 2018-06-07 17:51 | Discharge Plan ---
Discharge Plan Disposition: 01 Home, Self Care Condition: Good Diet: Regular Activity Restrictions: No lifting >15 pounds x6 weeks. Shower Restrictions: No Driving Restrictions: Yes Weight Bearing: Full Weight Additional Instructions or Follow Up instructions: Call with surgical questions/concerns. MRCP as outpatient. Follow upo appointment with me in 7-10 days. No Smoking: If you smoke, Please STOP! Call for help. Follow-up with: DICK MONET MD [Primary Care Provider] - Luke Gonzales MD [Provider Admit Priv/Credential] -
== END 2018-06-07 19:24 | disposition home or self-care (01) | DRG 418 ==
LOC: EDUNIT# → ED 01:05 → MS2 05:01
PROVIDERS: ADMIT Internal Medicine; ATTEND Surgery
PROC: 0FT44ZZ Resection of Gallbladder, Percutaneous Endoscopic Approach (ICD-10-PCS; principal; 2018-06-07 08:51)
DX: K81.9 Cholecystitis, unspecified (principal); K80.01 Calculus of gallbladder with acute cholecystitis with obstruction; K82.1 Hydrops of gallbladder; E87.1 Hypo-osmolality and hyponatremia; K42.9 Umbilical hernia without obstruction or gangrene; K82.8 Other specified diseases of gallbladder; R33.8 Other retention of urine; E03.9 Hypothyroidism, unspecified; I10 Essential (primary) hypertension; F32.9 Major depressive disorder, single episode, unspecified; K58.9 Irritable bowel syndrome, unspecified; Z85.821 Personal history of Merkel cell carcinoma; Z79.899 Other long term (current) drug therapy
CPT/HCPCS: 36415; 71046; 74300; 76705; 80053; 81001; 81003; 83690; 84484; 85025; 87086; 93005; 96374; 99284; 99285

== ENCOUNTER 2018-06-07 01:32 | Outpatient (CLI) | payer MEDICARE | END 2018-06-07 01:33 | disposition critical access hospital (66) | LOC: EMS 01:32 | PROVIDERS: ATTEND Surgery | DX: R10.9 Unspecified abdominal pain (principal); R11.0 Nausea; R14.0 Abdominal distension (gaseous) | CPT/HCPCS: A0425; A0427 ==

== ENCOUNTER 2018-06-17 17:49 | Outpatient (CLI) | payer MEDICARE ==
--- NOTE | 2018-06-18 14:48 | MRI Report ---
Reason: ENLARGED OBD Procedure Date: 06/17/2018 Accession Number: [id number] / [id number] Procedure: MRI - MRCP W/O CPT Code: FULL RESULT: EXAM: MR ABDOMEN WITHOUT CONTRAST (MR CHOLANGIOPANCREATOGRAPHY) EXAM DATE: 06/17/2018 06:30 PM. CLINICAL HISTORY: ENLARGED , COMMON BILE DUCT seen at ultrasound for abdominal pain. COMPARISON: ABDOMEN LIMITED 06/07/2018 4:10 AM. TECHNIQUE: Multiplanar breath-hold T1 and T2 sequences obtained through the abdomen on an MR scanner. Dedicated 2D and 3D MRCP sequences obtained through the biliary and pancreatic ducts. No intravenous contrast given. FINDINGS: Lung Bases: Unremarkable. Liver: No suspicious mass seen on this noncontrast study with note of posterior right liver hemangioma measuring 16 x 15 mm. No fatty infiltration. Biliary system: Gallbladder has been removed. No choledocholithiasis, mass, or stricture identified. Common bile duct measures 12 mm, mildly dilated due to senescent changes and post cholecystectomy status. Pancreas: No gross mass or duct dilatation seen. No peripancreatic inflammatory changes identified. Spleen: Normal. Kidneys: Normal. No hydronephrosis. Adrenals: Normal. Peritoneal cavity: Grossly unremarkable where seen. Study not designed to evaluate bowel. Other: None. IMPRESSION: 1. Interval cholecystectomy. 2. Mildly dilated extra hepatic bile duct likely due to senescent changes and post cholecystectomy status. No choledocholithiasis, mass, or stricture identified. RADIA
== END 2018-06-17 17:50 | disposition home or self-care (01) ==
LOC: DI 17:49
PROVIDERS: ATTEND Surgery
DX: K83.8 Other specified diseases of biliary tract (principal); Z90.49 Acquired absence of other specified parts of digestive tract
CPT/HCPCS: 74181

== ENCOUNTER 2019-03-22 10:44 | Outpatient (CLI) | payer MEDICARE ==
--- NOTE | 2019-03-23 11:21 | Ultrasound Report ---
Reason: POSTCHOLECYSTECTOMY SYNDROME Procedure Date: 03/22/2019 Accession Number: [id number] / [id number] Procedure: US - Abdomen Complete CPT Code: FULL RESULT: EXAM: ABDOMEN ULTRASOUND EXAM DATE: 03/22/2019 10:57 AM. CLINICAL HISTORY: Post-cholecystectomy syndrome. COMPARISON: MRCP W/O 06/17/2018 6:25 PM. TECHNIQUE: Real-time scanning was performed with static images obtained. FINDINGS: Liver: 1.8 cm homogeneously hyperechoic oval mass of the right lobe of liver corresponding to probable hemangioma unchanged in size since prior MRCP. Liver normal in size and otherwise normal in echotexture. 16 cm. Main portal vein flow: Hepatopetal. Gallbladder: Surgically absent. Biliary System: Common bile duct measures 11.5 mm. mm. No intrahepatic ductal dilatation. Tapered appearance of the distal duct similar in configuration and size to prior MRCP. Pancreas: Visualized head and body appear normal; tail is largely obscured. Kidneys: Right: 10.5 cm longitudinally. Normal. No contour-deforming mass, stones, or hydronephrosis. Stable extrarenal pelvis. Left: 10.9 cm longitudinally. Normal. No contour-deforming mass, stones, or hydronephrosis. Spleen: 8.3 cm. Normal in size and echotexture. Aorta and Inferior Vena Cava: Unremarkable. Other: None. IMPRESSION: 1. Stable dilated common bile duct at 12 mm post-cholecystectomy, not significantly changed from prior MRCP. 2. Stable 1.8 cm hemangioma right lobe of liver. RADIA
== END 2019-03-22 10:45 | disposition home or self-care (01) ==
LOC: DI 10:44
PROVIDERS: ATTEND Internal Medicine
DX: K91.5 Postcholecystectomy syndrome (principal); D18.03 Hemangioma of intra-abdominal structures
CPT/HCPCS: 76700

== ENCOUNTER 2020-03-31 07:00 | Outpatient (CLI) | payer MEDICARE | END 2020-03-31 23:59 | disposition home or self-care (01) | LOC: LAB.R 07:00 | PROVIDERS: ATTEND Obstetrics & Gynecology | DX: N39.41 Urge incontinence (principal) | CPT/HCPCS: 87086 ==

== ENCOUNTER 2020-04-14 14:05 | Outpatient (CLI) | payer MEDICARE ==
--- NOTE | 2020-04-17 12:08 | Mammography Report ---
BILATERAL DIGITAL SCREENING MAMMOGRAM 3D/2D: 04/14/2020 CLINICAL: Routine screening. Comparison is made to exams dated: 07/31/2016 ultrasound, 07/31/2016 mammogram, 07/04/2016 mammogram, 01/13/2013 mammogram, 12/05/2011 mammogram, and 01/07/2013 mammogram - [facility]. The tissue of both breasts is heterogeneously dense. This may lower the sensitivity of mammography. There is an oval low density mass with a circumscribed margin in the right breast at 10 o'clock middl e depth. There also is an oval low density mass with a circumscribed margin in the right breast central to the nipple middle depth. There is an oval low density mass with a circumscribed margin in the left breast at 8 o'clock anterio r depth. No other significant masses or calcifications are seen in either breast. IMPRESSION: INCOMPLETE: NEEDS ADDITIONAL IMAGING EVALUATION The oval low density mass in the right breast at 10 o'clock middle depth resembles a cyst and is inde terminate. Mediolateral and spot compression views as well as additional views with possible ultraso und are recommended. The oval low density mass in the right breast central to the nipple middle depth resembles a cyst and is indeterminate. Mediolateral and spot compression views as well as additional views with possible ultrasound are recommended. The oval low density mass in the left breast at 8 o'clock anterior depth resembles a cyst and is inde terminate. Mediolateral and spot compression views as well as additional views with possible ultraso und are recommended. This exam was interpreted at Station ID: [id number]. NOTE: For mammograms, a report in lay terms will be sent to the patient. Approximately 15% of breast malignancies will not be visualized mammographically. In the management of a palpable breast mass, a negative mammogram must not discourage biopsy of a clinically suspicious lesion. Electronically Signed By: Mj suggs/elida:04/14/2020 16:44:46 ACR BI-RADS Category 0: Incomplete 3340F PARENCHYMAL PATTERN: (D) - The breast(s) demonstrate(s) heterogeneously dense fibroglandular parstephaniey ma. BI-RADS CATEGORY: (0) - 0 Mammo and [place] [id number] Immediate follow-up LATERALITY: (B)
== END 2020-04-14 14:06 | disposition home or self-care (01) ==
LOC: DI 14:05
PROVIDERS: ATTEND Internal Medicine
DX: Z00.00 Encounter for general adult medical examination without abnormal findings (principal); Z12.31 Encounter for screening mammogram for malignant neoplasm of breast; R92.8 Other abnormal and inconclusive findings on diagnostic imaging of breast
CPT/HCPCS: 77063; 77067

== ENCOUNTER 2020-06-06 11:18 | Outpatient (CLI) | payer MEDICARE ==
--- NOTE | 2020-06-07 16:31 | Mammography Report ---
BILATERAL DIGITAL DIAGNOSTIC MAMMOGRAM 3D/2D: 06/06/2020 CLINICAL: Patient returns today to evaluate focal asymmetries in both breasts. Comparison is made to exams dated: 04/14/2020 mammogram, 07/31/2016 ultrasound, 07/31/2016 mammogram, 07/04/2016 mammogram, 01/13/2013 mammogram, and 01/07/2013 mammogram - [facility]. Th e tissue of both breasts is heterogeneously dense. This may lower the sensitivity of mammography. There is an oval low density mass with a circumscribed margin in the right breast at 10 o'clock middl e depth. There also is an oval low density mass with a circumscribed margin in the right breast central to the nipple middle depth. There is an oval low density mass with a circumscribed margin in the left breast at 8 o'clock anterio r depth. Numerous rounded asymmetries are present throughout both breasts, similar compared to prior exams. IMPRESSION: INCOMPLETE: NEEDS ADDITIONAL IMAGING EVALUATION The oval low density mass in the right breast at 10 o'clock middle depth resembles a cyst and is inde terminate. An ultrasound is recommended. The oval low density mass in the right breast central to the nipple middle depth resembles a cyst and is indeterminate. An ultrasound is recommended. The oval low density mass in the left breast at 8 o'clock anterior depth resembles a cyst and is inde terminate. An ultrasound is recommended. Bilateral breast ultrasound was performed immediately following this exam. This exam was interpreted at Station ID: [id number]. NOTE: For mammograms, a report in lay terms will be sent to the patient. Approximately 15% of breast malignancies will not be visualized mammographically. In the management of a palpable breast mass, a negative mammogram must not discourage biopsy of a clinically suspicious lesion. Electronically Signed By: Natalie parikh/:06/06/2020 13:05:17 ACR BI-RADS Category 0: Incomplete 3340F PARENCHYMAL PATTERN: (D) - The breast(s) demonstrate(s) heterogeneously dense fibroglandular partaniya mcgarth. BI-RADS CATEGORY: (0) - 0 Ultrasound [id number] Immediate follow-up LATERALITY: (B)
--- NOTE | 2020-06-07 16:31 | Ultrasound Report ---
LIMITED ULTRASOUND OF LEFT BREAST: 06/06/2020 CLINICAL: Patient returns for additional imaging over suspected masses in both breasts. Comparison is made to exams dated: 06/06/2020 mammogram, 04/14/2020 mammogram, 07/31/2016 ultrasound, 07/31/2016 mammogram, 07/04/2016 mammogram, and 01/13/2013 mammogram - [facility]. Color flow and real-time ultrasound of the left breast 8 o'clock region were performed. Cardenas scale images of the real-time examination were reviewed. There is a benign 0.4 cm x 0.4 cm x 0.3 cm round cyst in the left breast at 8 o'clock middle depth. This round cyst is hypoechoic. This correlates with mammography findings. Color flow imaging demons trates that there is no vascularity present. IMPRESSION: BENIGN There is no sonographic evidence of malignancy. The 0.4 cm cyst in the left breast is benign. Return to annual mammogram screening schedule is recommended. The patient could not stay to hear results. A letter will be mailed. This exam was interpreted at Station ID: [id number]. Electronically Signed By: Natalie parikh/:06/06/2020 13:11:38 Ultrasound BI-RADS: 2 Benign BI-RADS CATEGORY: (2) - 2 Mammogram [id number] return to screening LATERALITY: (B)
--- NOTE | 2020-06-07 16:31 | Ultrasound Report ---
LIMITED ULTRASOUND OF RIGHT BREAST: 06/06/2020 CLINICAL: Patient returns for additional imaging over suspected masses in both breasts. Comparison is made to exams dated: 06/06/2020 mammogram, 04/14/2020 mammogram, 07/31/2016 ultrasound, 07/31/2016 mammogram, 07/04/2016 mammogram, and 01/13/2013 mammogram - [facility]. Color flow and real-time ultrasound of the right breast 4 o'clock, 10 o'clock, and 12 o'clock regions were performed. Cardenas scale images of the real-time examination were reviewed. There is a benign 0.6 cm x 0.5 cm x 0.4 cm cyst in the right breast at 12 o'clock middle depth. This cyst is anechoic. This correlates with mammography findings. There also is a benign 0.9 cm x 0.3 cm x 0.4 cm oval cyst in the right breast at 4 o'clock middle dep th. This oval cyst is anechoic. This correlates with mammography findings. Color flow imaging demo nstrates that there is no vascularity present. Additionally, there is a benign 0.5 cm x 0.4 cm x 0.5 cm oval simple cyst in the right breast at 10 o 'clock middle depth. This correlates with mammography findings. Color flow imaging demonstrates xenia t there is no vascularity present. IMPRESSION: BENIGN There is no sonographic evidence of malignancy. The 0.6 cm cyst in the right breast at 12 o'clock middle depth is benign. The 0.9 cm oval cyst in the right breast at 4 o'clock middle depth is benign. The 0.5 cm oval simple cyst in the right breast at 10 o'clock middle depth is benign. Return to annual mammogram screening schedule is recommended. Patient could not stay to hear results. A letter will be mailed. This exam was interpreted at Station ID: [id number]. Electronically Signed By: Natalie parikh/:06/06/2020 13:10:21 Ultrasound BI-RADS: 2 Benign BI-RADS CATEGORY: (2) - 2 Mammogram [id number] return to screening LATERALITY: (B)
== END 2020-06-06 11:19 | disposition home or self-care (01) ==
LOC: DI 11:18
PROVIDERS: ATTEND Internal Medicine
DX: N60.11 Diffuse cystic mastopathy of right breast (principal); N60.01 Solitary cyst of right breast
CPT/HCPCS: 76642; 77066

== ENCOUNTER 2022-05-15 12:38 | Outpatient (CLI) | payer MEDICARE ==
--- NOTE | 2022-05-15 16:52 | XRAY Report ---
PROCEDURE: Lumbar Spine 2 View INDICATIONS: NECK PAIN, R SHOULDER PAIN, THORACIC AND LOW BACK TECHNIQUE: 3 views of the lumbar spine were acquired. COMPARISON: None. FINDINGS: Bones: 5 [id number] vertebrae are present. S-shaped curvature of the thoracolumbar spine with c urvature to the left in the lumbar spine. L4-5 has grade 1 anterolisthesis. The sacroiliac joints and symphysis pubis are normal.. No vertebral body compression fractures. No suspicious bony lesions. Disc space narrowing at L4-5 and L5-S1. There is facet arthrosis in the lower lumbar spine. Soft tissues: Overlying bowel gas pattern is normal. No suspicious soft tissue calcifications. IMPRESSION: 1. 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 2. S-shaped curvature of the thoracolumbar spine and grade 1 anterolisthesis of L4-5. 3. Degenerative disc disease most prominent at L4-5 and L5-S1. Reviewed by: Christopher Wood on 05/15/2022 4:51 PM PDT Approved by: Christopher Wood on 05/15/2022 4:51 PM PDT Station ID: [id number]
--- NOTE | 2022-05-15 16:55 | XRAY Report ---
PROCEDURE: Thoracic Spine 3 View INDICATIONS: NECK PAIN, R SHOULDER PAIN, THORACIC AND LOW BACK TECHNIQUE: 2 views of the thoracic spine were acquired. COMPARISON: None. FINDINGS: Bones: No fractures or dislocations. No suspicious bony lesions. Rightward curvature of the thoraco lumbar spine. 12 pairs of ribs are noted, and appear intact where visualized. Soft tissues: No paravertebral stripe thickening. IMPRESSION: 1. No acute abnormality. 2. Rightward curvature of the thoracolumbar spine. Reviewed by: Christopher Wood on 05/15/2022 4:53 PM PDT Approved by: Christopher Wood on 05/15/2022 4:53 PM PDT Station ID: [id number]
--- NOTE | 2022-05-15 16:57 | XRAY Report ---
PROCEDURE: Cervical Spine 2 View INDICATIONS: CERIVCALGIA TECHNIQUE: 3 view(s) of the cervical spine were acquired. COMPARISON: None. FINDINGS: Bones: No fractures or dislocations to the T1 level. The lateral masses of C1 appear intact on the odontoid view. No suspicious bony lesions. Disc space narrowing consistent with disc disease of C4- 5, C5-6, and C6-7. Soft tissues: No prevertebral soft tissue swelling. IMPRESSION: Multilevel degenerative changes with degenerative disc disease at C4-5, C5-6, and C6-7. Reviewed by: Christopher Wood on 05/15/2022 4:55 PM PDT Approved by: Christopher Wood on 05/15/2022 4:55 PM PDT Station ID: [id number]
--- NOTE | 2022-05-15 17:44 | XRAY Report ---
PROCEDURE: Shoulder 3 View RT INDICATIONS: NECK PAIN, R SHOULDER PAIN, THORACIC AND LOW BACK TECHNIQUE: 3 views of the shoulder were acquired. COMPARISON: None. FINDINGS: Bones: No fractures or dislocations. No suspicious bony lesions. Visualized ribs appear intact. Soft tissues: No suspicious soft tissue calcifications. IMPRESSION: Normal right shoulder radiographs Reviewed by: Herbie Aaron MD on 05/15/2022 4:43 PM AKDT Approved by: Herbie Aaron MD on 05/15/2022 4:43 PM AKDT Station ID: [id number]
== END 2022-05-15 12:39 | disposition home or self-care (01) ==
LOC: DI.S 12:38
PROVIDERS: ATTEND Nurse Practitioner Family
DX: M47.816 Spondylosis without myelopathy or radiculopathy, lumbar region (principal); M51.36 Other intervertebral disc degeneration, lumbar region; M47.817 Spondylosis without myelopathy or radiculopathy, lumbosacral region; M51.37 Other intervertebral disc degeneration, lumbosacral region; M41.9 Scoliosis, unspecified; M43.16 Spondylolisthesis, lumbar region; M50.321 Other cervical disc degeneration at C4-C5 level; M25.511 Pain in right shoulder

== ENCOUNTER 2023-11-21 12:24 | Outpatient (CLI) | payer MEDICARE | END 2023-11-21 12:25 | disposition home or self-care (01) | LOC: DI 12:24 | PROVIDERS: ATTEND Internal Medicine | DX: R06.09 Other forms of dyspnea (principal); R06.02 Shortness of breath; R01.1 Cardiac murmur, unspecified; I08.1 Rheumatic disorders of both mitral and tricuspid valves | CPT/HCPCS: 93307 ==